=== PATIENT | male | born 1995 | race Caucasian/White ===

== ENCOUNTER 2018-04-20 18:27 | Emergency (ER) | payer SELFPAY ==
[~2018-04-20] VITALS: Ht 172.7 cm; Wt 95.3 kg
[2018-04-20 19:12] VITALS: BP_SYST 120
--- NOTE | 2018-04-20 21:47 | NUR ---
Patient to ER bed 6 to gown for evaluation. Side rails up. Report given to Pam SAMPSON.
--- NOTE | 2018-04-20 21:55 | NUR ---
Patient AOx4, ambulatory, presents to ER with complaint of right facial swelling x2 days and pain 6/10 x1 week. Patient states no discomfort to wisdom teeth and no injury to site. Patient medicated with ASA 325mg. No other symptoms or complaints.
--- NOTE | 2018-04-20 22:20 | NUR ---
ER MD Kaye at bedside for medical evaluation.
[2018-04-20] MEDS ORDERED: AMOXICILLIN 500 MG CAPSULE PO ONE (22:30)
[2018-04-20] MEDS ORDERED: IBUPROFEN 800 MG TABLET PO ONE (22:30)
--- NOTE | 2018-04-20 22:52 | NUR ---
No adverse reactions noted after medication administration. Will continue to monitor.
[2018-04-20 22:53] VITALS: BP_SYST 126
--- NOTE | 2018-04-20 22:53 | NUR ---
Patient given written and verbal discharge instructions and verbalizes understanding. ER MD discussed with patient the results and treatment provided. Patient in stable condition. ID arm band removed. Rx of Amoxicillin, Tramadol, and Motrin given. Patient educated on pain management and to follow up with PMD. Pain Scale 2/10 tolerable to patient. Opportunity for questions provided and answered. Medication side effect fact sheet provided.
== END 2018-04-20 22:53 | disposition home or self-care (01) ==
LOC: SED 18:27
DX: K04.7 Periapical abscess without sinus (principal)
CPT/HCPCS: 99283